=== PATIENT | female | born 1975 | race Caucasian/White ===

== ENCOUNTER → 2016-10-18 | Outpatient (CLI) | payer OTHER ==
[2016-10-18 15:47] LABS: MEAN CORPUSCULAR HEMOGLOBIN 29.5 pg (27.0-33.0); MEAN CORPUSCULAR HGB CONC 33.2 g/dl (32.0-36.5); MEAN CORPUSCULAR VOLUME 88.7 fl (80.0-96.0); RED CELL DISTRIBUTION WIDTH 14.5 % (11.5-14.5); WHITE BLOOD COUNT 11.8 K/mm3 (4.0-10.0)
[2016-10-18 16:16] LABS: ALBUMIN 3.8 GM/DL (3.2-5.2); ALBUMIN/GLOBULIN RATIO 1.03 (1.00-1.93); ALKALINE PHOSPHATASE 80 U/L (45-117); ALT/SGPT 22 U/L (12-78); ANION GAP 9 MEQ/L (8-16); AST/SGOT 17 U/L (15-37); BILIRUBIN,TOTAL 0.3 MG/DL (0.2-1.0); BLOOD UREA NITROGEN 6 MG/DL (7-18); CALCIUM LEVEL 8.7 MG/DL (8.5-10.1); CARBON DIOXIDE LEVEL 25 MEQ/L (21-32); CHLORIDE LEVEL 106 MEQ/L (98-107); CHOLESTEROL LEVEL 222 MG/DL (<200); CREATININE FOR GFR 0.75 MG/DL (0.55-1.02); GLOMERULAR FILTRATION RATE > 60.0 (>58); GLUCOSE, FASTING 74 MG/DL (70-105); POTASSIUM SERUM 4.4 MEQ/L (3.5-5.1); SODIUM LEVEL 140 MEQ/L (136-145); TOTAL PROTEIN 7.5 GM/DL (6.4-8.2); TRIGLYCERIDES LEVEL 209 MG/DL (<150)
--- NOTE | 2016-10-18 18:43 | REP ---
Digital screening mammography with CAD: Comparison mammography: 06/28/2015, 12/03/2012, and 11/03/2009. This patient had a benign ultrasound-guided core biopsy of the left breast nodule in July 2015. The pathology reports states fibrocystic changes. One of the fragments shows features suggestive of fibroadenoma. On review, it also appears that ultrasound guided needle biopsy of this lesion was performed in 2009. Both of these pathologic reports describe a fragments compatible with fibroadenoma. Mammographic findings: There is a well circumscribed oval-shaped 2.6 cm mass in the superior medial quadrant of the left breast adjacent to two needle biopsy marker clips. This has enlarged in the interval since the last mammogram from 06/28/2015 when it measured 2 cm. There is no other change in the breast parenchyma in the interval since prior mammography. No neodensity is seen. There are normal appearing lymph nodes in each axilla. No micro calcific cluster is observed. Impression: BIRADS category II benign bilateral mammography. There is an enlarging mass in the superior and medial left breast at 11 o'clock. This has been biopsied twice in the past with the report compatible with fibroadenoma. No other significant finding. BI-RADS/ACR category 2 mammogram. Benign finding(s). Routine annual screening mammography (for women over age 40). This mammogram was interpreted with the aid of an FDA-approved computer-aided detection system. . The patient states that she has not had a clinical breast exam in over a year. The patient letter being requested is M2. Signed by Lyndon Gil MD 10/19/2016 05:19 P
--- NOTE | 2016-10-18 22:45 | ECGEPIP ---
Stationary ECG Study [facility] Test Date: 2016-10-18 Pat Name: STEPHY PADGETT Department: Room: - Gender: F Warehouse Loader: LINO : 1975 Requested By: Cecille Méndez Order Number: [id number] Reading MD: Aashish Coles Measurements Intervals [place] Rate: 77 P: 52 GA: 163 QRS: 46 QRSD: 89 T: 29 QT: 377 QTc: 427 Interpretive Statements SINUS RHYTHM EARLY REPOLARIZATION MINIMAL/NONSIGNIFICANT Q WAVES NOTED IN THE INFEROLATERAL LEADS COMPARED TO THE LAST 2 TRACINGS IN THE SYSTEM, NO SIGNIFICANT CHANGES Electronically Signed On 10-18-2016 22:45:36 EDT by Aashish Coles
--- NOTE | 2016-10-19 04:19 | REP ---
Clinical: Yearly physical evaluation . Comparison: 01/02/2015 . Technique: PA and lateral. Findings: The mediastinum and cardiac silhouette are normal. The lung martinez are clear and without acute consolidation, effusion, or pneumothorax. The skeletal structures are intact and normal. Impression: 1. No acute cardiopulmonary process. Signed by Stefan Perez MD 10/19/2016 04:10 A
== END ==
LOC: M LAB 14:28
PROVIDERS: ATTEND Family Medicine
DX: Z00.00 Encounter for general adult medical examination without abnormal findings (principal)

== ENCOUNTER 2016-11-10 17:09 | Emergency (ER) | payer OTHER ==
[~2016-11-10] VITALS: Ht 165.1 cm; Wt 94.3 kg
[2016-11-10] MEDS ORDERED: VITA50003 PO (17:26)
[2016-11-10] MEDS ORDERED: PRAV40TA2 PO (17:26)
[2016-11-10] MEDS ORDERED: CAPT125TA PO (17:26)
[2016-11-10] MEDS ORDERED: NS 1,000 ML IV ONE (18:45)
[2016-11-10 19:11] LABS: BASO % 0.3 % (0.0-1.0); EOS # 0.3 K/mm3 (0.0-0.50); LARGE UNSTAINED CELL # 0.1 K/mm3 (0.0-0.4); LYMPH # 2.9 K/mm3 (1.5-4.5); LYMPH % 19.4 % (24.0-44.0); MEAN CORPUSCULAR HEMOGLOBIN 30.1 pg (27.0-33.0); MEAN CORPUSCULAR HGB CONC 34.3 g/dl (32.0-36.5); MEAN CORPUSCULAR VOLUME 87.7 fl (80.0-96.0); MONO # 0.5 K/mm3 (0.0-0.8); MONO % 3.3 % (0.0-5.0); NEUTROPHILS # 10.4 K/mm3 (1.8-7.7); PLATELET COUNT, AUTOMATED 224 k/mm3 (150-450); RED CELL DISTRIBUTION WIDTH 14.4 % (11.5-14.5); WHITE BLOOD COUNT 14.1 K/mm3 (4.0-10.0)
[2016-11-10] MEDS ORDERED: KETOROLAC 30 MG/ML VIAL (J1885) IV ONE (19:30)
[2016-11-10 19:41] LABS: ALBUMIN 3.9 GM/DL (3.2-5.2); ALBUMIN/GLOBULIN RATIO 1.03 (1.00-1.93); ALKALINE PHOSPHATASE 76 U/L (45-117); ALT/SGPT 23 U/L (12-78); AMYLASE 30 U/L (25-115); ANION GAP 6 MEQ/L (8-16); AST/SGOT 13 U/L (15-37); BILIRUBIN,DIRECT < 0.1 MG/DL (0.0-0.2); BILIRUBIN,TOTAL 0.2 MG/DL (0.2-1.0); BLOOD UREA NITROGEN 5 MG/DL (7-18); CALCIUM LEVEL 8.7 MG/DL (8.5-10.1); CARBON DIOXIDE LEVEL 28 MEQ/L (21-32); CHLORIDE LEVEL 104 MEQ/L (98-107); CREATININE FOR GFR 0.72 MG/DL (0.55-1.02); GLOMERULAR FILTRATION RATE > 60.0 (>58); GLUCOSE, FASTING 87 MG/DL (70-105); POTASSIUM SERUM 3.8 MEQ/L (3.5-5.1); SODIUM LEVEL 138 MEQ/L (136-145); TOTAL PROTEIN 7.7 GM/DL (6.4-8.2)
[2016-11-10] MEDS ORDERED: ISOVUE-370 76% 100ML VIAL (Q9967) As Ordered ONE (21:15)
--- NOTE | 2016-11-10 21:40 | REPUSA ---
CT of the abdomen and pelvis with contrast Clinical statement: Pain. Technique: Multiple axial CT images were obtained from the base of the lungs through the floor of the pelvis utilizing 5 mm axial slices after administration of oral and nonionic intravenous contrast. C oronal and sagittal reconstructions were also obtained. No comparison is available. Findings: Chest: The visualized lung bases are clear. Abdomen: The liver, spleen, pancreas, kidneys, and adrenal glands are unremarkable. The aorta is with in normal limits. There is no evidence of abdominal lymphadenopathy or ascites. There is a very small umbilical hernia containing only omental fat. Pelvis: The bowel is unremarkable, with no obstructive or inflammatory changes. The appendix is kevon l. The urinary bladder is within normal limits. The other pelvic structures appear grossly intact. Th ere is no evidence of pelvic lymphadenopathy or ascites. Bones: There are no suspicious osseous abnormalities seen. Impression: Unremarkable CT examination of the abdomen and pelvis. No acute abnormality to explain th e patient's pain. Small umbilical hernia.
[2016-11-10] MEDS ORDERED: ZOFR4TAB3 PO (22:11)
[2016-11-10] MEDS ORDERED: IBUP600T26 PO (22:12)
[2016-11-10 22:19] VITALS: BP 114/55
--- NOTE | 2016-11-10 22:58 | REP ---
ACUTE ABDOMINAL SERIES: 11/10/2016. Comparison chest x-ray 10/18/2016. Clinical history: Abdominal pain. PA chest: Lungs are well inflated. There is some minor basilar fibrotic change, but no pleural effusion, acute infiltrate, atelectasis or mass. The heart, mediastinal and hilar contours are normal. Bony thorax shows no focal lesion. There is no widening of the mediastinum. No free air under the diaphragm. Flat upright abdomen: Right upper quadrant clips from prior cholecystectomy. Gas pattern is nonspecific with some stool in the right colon. Scattered gas in the hepatic flexure and a paucity of gas in small bowel loops and colon on the left side of the abdomen. Small amounts of gas and small bowel loops in the right abdomen. However, no sign of obstruction and no air-fluid levels, mass or free air. Bones grossly intact. Impression: 1. Nonspecific gas pattern without obstruction, mass or free air. Mostly fluid-filled loops may reflect some gastroenteritis or ileus. 2. PA chest with some minor chronic basilar markings. Stable. No acute findings in the chest. Signed by Bryson Saleh MD 11/11/2016 08:12 P
== END 2016-11-10 22:35 | disposition home or self-care (01) ==
LOC: M ED 18:51
DX: K52.9 Noninfective gastroenteritis and colitis, unspecified (principal); I10 Essential (primary) hypertension; E78.00 Pure hypercholesterolemia, unspecified; Z88.1 Allergy status to other antibiotic agents; F17.210 Nicotine dependence, cigarettes, uncomplicated

== ENCOUNTER → 2016-11-20 | Outpatient (REF) | payer OTHER ==
[~2016-11-20] MED LIST: CAPT125TA PO; IBUP600T26 PO; PRAV40TA2 PO; VITA50003 PO; ZOFR4TAB3 PO
[2016-11-20 18:05] LABS: FREE T4 0.95 NG/DL (0.76-1.46); HCG, SERUM QUANTITATIVE < 1.0 MIU/ML
[2016-11-20 18:29] LABS: FOLLICLE STIMULATING HORMONE 3.5 mIU/mL; LUTEINIZING HORMONE 6.8 mIU/mL
[2016-11-20 19:08] LABS: MEAN CORPUSCULAR HEMOGLOBIN 28.2 pg (27.0-33.0); MEAN CORPUSCULAR HGB CONC 32.1 g/dl (32.0-36.5); MEAN CORPUSCULAR VOLUME 87.9 fl (80.0-96.0); RED CELL DISTRIBUTION WIDTH 14.3 % (11.5-14.5); WHITE BLOOD COUNT 11.4 K/mm3 (4.0-10.0)
== END ==
LOC: M LAB REF 16:29
PROVIDERS: ATTEND Advanced Practice Midwife
DX: N92.1 Excessive and frequent menstruation with irregular cycle (principal)

== ENCOUNTER → 2017-02-07 | Outpatient (CLI) | payer MEDICAID, OTHER ==
[~2017-02-07] VITALS: Ht 165.1 cm; Wt 91.6 kg
[~2017-02-07] MED LIST changes: +IBUP-1022 PO; -IBUP600T26 PO; +LIDOCAINE 2% INJ 100 MG/5 ML SDV (FOR ANES.) As Ordered ONE; +NS 1,000 ML IV SCH; +PERCOCET PO; +PROPOFOL 200 MG/20 ML VIAL As Ordered ONE; +VITA1CAP40 PO; -VITA50003 PO
--- NOTE | 2017-02-07 11:58 | ROOR ---
Patient Name: Jenny Crawford Procedure Date: 02/07/2017 11:41 AM Date of : 1975 Age: 41 Room: [facility] Gender: Female Note Status: Finalized Procedure: Total Colonoscopy to Cecum Indications: Rectal bleeding Providers: Lb Dempsey MD Referring MD: KARLI LLOYD MD Requesting Provider: Medicines: Monitored Anesthesia Care Complications: No immediate complications. Procedure: Pre-Anesthesia Assessment: - The heart rate, respiratory rate, oxygen saturations, blood pressure, adequacy of pulmonary ventilation, and response to care were monitored throughout the procedure. The Colonoscope was introduced through the anus and advanced to the cecum, identified by appendiceal orifice and ileocecal valve. The colonoscopy was performed without difficulty. The patient tolerated the procedure well. The quality of the bowel preparation was good. Findings: The perianal and digital rectal examinations were normal. Non-bleeding internal hemorrhoids were found during retroflexion. The hemorrhoids were small and Grade I (internal hemorrhoids that do not prolapse). No other significant abnormalities were identified in a careful examination of the remainder of the colon. The exam was otherwise without abnormality on direct and retroflexion views. Impression: - Non-bleeding internal hemorrhoids. - The examination was otherwise normal on direct and retroflexion views. - No specimens collected. - The exam was otherwise normal to the cecum. Recommendation: - Patient has a contact number available for emergencies. The signs and symptoms of potential delayed complications were discussed with the patient. Return to normal activities tomorrow. Written discharge instructions were provided to the patient. - High fiber diet. - Discharge patient to home. - Continue present medications. - Repeat colonoscopy in 10 years for screening purposes. - Return to referring physician. - The findings and recommendations were discussed with the patient's family. Lb Dempsey MD Lb Dempsey MD 02/07/2017 11:58:08 AM This report has been signed electronically. Number of Addenda: 0 Note Initiated On: 02/07/2017 11:41 AM Estimated Blood Loss: Estimated blood loss: none.
[2017-02-07 12:23] VITALS: BP 117/72
== END | disposition home or self-care (01) ==
LOC: M OPP 09:54
PROVIDERS: ATTEND Internal Medicine Gastroenterology
DX: K62.5 Hemorrhage of anus and rectum (principal); K64.0 First degree hemorrhoids; I10 Essential (primary) hypertension; E78.5 Hyperlipidemia, unspecified; R19.4 Change in bowel habit; F17.210 Nicotine dependence, cigarettes, uncomplicated; Z88.1 Allergy status to other antibiotic agents; Z91.018 Allergy to other foods; Z91.040 Latex allergy status; Z79.899 Other long term (current) drug therapy; Z80.3 Family history of malignant neoplasm of breast; Z80.41 Family history of malignant neoplasm of ovary

== ENCOUNTER 2017-02-14 09:29 | Day surgery (SDC) | payer MEDICAID, OTHER ==
[~2017-02-14] VITALS: Ht 165.1 cm; Wt 89.4 kg
[~2017-02-14 09:29] MED LIST changes: -LIDOCAINE 2% INJ 100 MG/5 ML SDV (FOR ANES.) As Ordered ONE; -NS 1,000 ML IV SCH; -PERCOCET PO; -PROPOFOL 200 MG/20 ML VIAL As Ordered ONE
[2017-02-14 09:59] LABS: MEAN CORPUSCULAR HEMOGLOBIN 29.3 pg (27.0-33.0); MEAN CORPUSCULAR HGB CONC 33.6 g/dl (32.0-36.5); MEAN CORPUSCULAR VOLUME 87.1 fl (80.0-96.0); WHITE BLOOD COUNT 10.2 K/mm3 (4.0-10.0)
[2017-02-14] MEDS ORDERED: LR 1,000 ML IV ONE (10:00)
[2017-02-14] MEDS ORDERED: ACETAMINOPHEN 650 MG SUPP PR ONE (10:00)
[2017-02-14 10:23] LABS: CONTROL LINE HCG INT CTR LINE PRESENT
[2017-02-14 10:27] LABS: ANION GAP 4 MEQ/L (8-16); BLOOD UREA NITROGEN 6 MG/DL (7-18); CALCIUM LEVEL 8.8 MG/DL (8.5-10.1); CARBON DIOXIDE LEVEL 30 MEQ/L (21-32); CHLORIDE LEVEL 107 MEQ/L (98-107); CREATININE FOR GFR 0.76 MG/DL (0.55-1.02); GLOMERULAR FILTRATION RATE > 60.0 (>58); GLUCOSE, FASTING 87 MG/DL (70-105); POTASSIUM SERUM 3.9 MEQ/L (3.5-5.1); SODIUM LEVEL 141 MEQ/L (136-145)
[2017-02-14] MEDS ORDERED: MIDAZOLAM INJ 2 MG/2 ML VIAL (J2250) As Ordered ONE (10:41)
[2017-02-14] MEDS ORDERED: fentaNYL 100 MCG/2 ML INJECTION (J3010) As Ordered ONE (10:41)
[2017-02-14] MEDS ORDERED: ACETAMINOPHEN 650 MG SUPP As Ordered ONE (11:45)
[2017-02-14] MEDS ORDERED: BUPIVACAINE/EPIN 0.25% 30 ML VIAL As Ordered ONE (11:45)
[2017-02-14] MEDS ORDERED: FLUORESCEIN 10% (100MG/ML) 5 ML VIAL As Ordered ONE (11:45)
[2017-02-14] MEDS ORDERED: HYDROmorphone HCL 2 MG/ML 1ML VIAL (J1170) As Ordered ONE ×2 (12:35→13:11)
[2017-02-14] MEDS ORDERED: NEOSTIGMINE 1MG/ML 5 ML SYRINGE (J2710) As Ordered ONE (12:56)
[2017-02-14] MEDS ORDERED: ROCURONIUM BROMIDE 50 MG/5 ML VIAL/SYRINGE As Ordered ONE (12:56)
[2017-02-14] MEDS ORDERED: PROPOFOL 200 MG/20 ML VIAL As Ordered ONE (12:56)
[2017-02-14] MEDS ORDERED: GLYCOPYRROLATE INJ 0.2 MG/ML 2 ML VIAL As Ordered ONE (12:56)
[2017-02-14] MEDS ORDERED: dexameTHASONE 4 MG/ML 1ML VIAL (J1100) As Ordered ONE (12:56)
[2017-02-14] MEDS ORDERED: LIDOCAINE 2% INJ 100 MG/5 ML SDV (FOR ANES.) As Ordered ONE (12:56)
[2017-02-14] MEDS ORDERED: ONDANSETRON 4MG/2ML VIAL (J2405) As Ordered ONE (12:57)
[2017-02-14] MEDS ORDERED: KETOROLAC 60 MG/2 ML VIAL (J1885) As Ordered ONE (12:57)
[2017-02-14] MEDS ORDERED: PERCOCET 5MG/325MG TAB PO PRN (14:45)
[2017-02-14] MEDS ORDERED: LR 1,000 ML IV SCH ×2 (14:45→15:00)
[2017-02-14] MEDS ORDERED: ONDANSETRON 4MG/2ML VIAL (J2405) IV PRN ×2 (14:45)
[2017-02-14] MEDS ORDERED: NORCO, ANEXSIA 5/325MG TABLET (HYDROcodone/ACETAMINOPHEN) PO PRN (14:45)
[2017-02-14] MEDS ORDERED: fentaNYL 100 MCG/2 ML INJECTION (J3010) IV PRN (14:45)
[2017-02-14 15:30] VITALS: BP 107/63
[2017-02-14] MEDS: IBUPROFEN 800 MG TAB PO SCH ×3 (15:57→23:06)
[2017-02-14] MEDS: SIMETHICONE 80 MG CHEW TAB PO SCH ×3 (15:59→23:06)
[2017-02-14 16:00] VITALS: BP 102/57
[2017-02-14 16:30] VITALS: BP 99/55
[2017-02-14 17:30] VITALS: BP 103/50
[2017-02-14 18:30] VITALS: BP 124/57
[2017-02-14 20:00] VITALS: BP 108/54
[2017-02-15] VITALS: BP 136/62
[2017-02-15] MEDS ORDERED: PERCOCET PO (03:20)
[2017-02-15 04:00] VITALS: BP 99/55
[2017-02-15] MEDS: IBUPROFEN 800 MG TAB PO SCH (06:46)
[2017-02-15] MEDS: SIMETHICONE 80 MG CHEW TAB PO SCH (06:46)
[2017-02-15 08:00] VITALS: BP 117/59
--- NOTE | 2017-02-15 18:10 | RO ---
DATE OF PROCEDURE: 02/14/2017 Malathi is a 41-year-old female with extensive history of abnormal uterine bleeding, dysmenorrhea and an enlarged uterus. After counseling in the office a decision was made for robotic-assisted laparoscopic hysterectomy and removal of both tubes. PREOPERATIVE DIAGNOSES: 1. Abnormal uterine bleeding. 2. Dysmenorrhea. 3. Enlarged uterus. POSTOPERATIVE DIAGNOSES: 1. Abnormal uterine bleeding. 2. Dysmenorrhea. 3. Enlarged uterus. OPERATIVE PROCEDURE: 1. Robotic-assisted laparoscopic hysterectomy. 2. Bilateral salpingectomies 3. Cystoscopy. SURGEON: Dev Luu MD RN TRANSFER: Bailey Vann ANESTHESIA: General. COMPLICATIONS: None. ESTIMATED BLOOD LOSS: Less than 100 mL. SPECIMENS SENT TO THE LAB: The uterus, cervix and bilateral fallopian tubes. DESCRIPTION OF PROCEDURE: After meeting with the patient in preoperative area and reaffirmed informed consent, the patient was taken to the operating room where general anesthetic was found to be adequate. She was then draped and prepped in the usual sterile fashion in dorsal lithotomy position. At this point, a Lira catheter was placed in the bladder for drainage. We then placed a HUMI II uterine manipulator. Attention was then turned to the abdomen where a 10 mm infraumbilical incision was made. Using the Veress needle, the abdomen was insufflated with CO2 gas to approximately 3.5 liters. Then, under direct visualization the trocar and the scope was inserted, then two 8 mm left lateral ports were placed one for trocar arm two and the assist port on the right side. An 8 mm lateral port was placed for placement of robotic arm one. After placement of these trocars under direct visualization, the robot was brought to the patient's right side and docked in a 45 degrees angle. A vessel sealer along with a grasper was then placed in the robotic arms. I then unscrubbed and went to the surgeon console began the surgery. The fallopian tube was identified and the mesosalpinx was grabbed with a vessel sealer, sealed and cut. This was taken down all way down to the utero-ovarian ligament. The utero-ovarian ligament was cauterized and cut in a similar fashion. The round ligament was also identified and this was cauterized and cut in a similar fashion down to the uterine artery. The anterior leaflet of the broad ligament was then dissected off to create a bladder flap. The bladder was pushed out of the operative field. The opposite side was done in a similar fashion. At this point the uterine arteries were skeletonized and the uterine arteries were then coagulated and cut using the vessel sealer. Both side was done in a similar fashion. At this point the bipolar grasper was removed, an EndoShear was placed and an anterior and posterior colpotomy was then performed. The uterus as well as the bilateral fallopian tubes were removed through the vagina and left there for pneumoperitoneum. At this point, the bipolar grasper was removed. Needle new car driver was inserted and #2-0 V-Loc suture was then used to close the vaginal cuff in a running fashion. The peritoneum over the vaginal cuff was also closed. After closure of the vaginal cuff, 1 mL of Furacin was given by the end of the anesthesiologist for cystoscopy. I then resrubbed, retrograde filled the bladder to approximately 250 mL of normal saline. The catheter was removed, cystoscope inserted and a cystoscopy was performed. Bilateral urethral jets were noted. No evidence of any bladder injury noted. After showing that there was no injury, the cystoscope was removed. A Lira catheter was replaced back in the bladder. The robot was undocked and the laparoscopic ports were then closed using #0 Vicryl in the fascia and #3-0 Vicryl in a subcuticular fashion on the skin. Dermabond placed. 0.25% Marcaine was used for postoperative pain. The patient tolerated procedure well. She was then transferred to recovery room in stable condition.
== END 2017-02-15 08:55 | disposition home or self-care (01) ==
LOC: M SDC 09:29 → M PED 15:25 → M SDC 02-15 08:55
PROVIDERS: ATTEND Obstetrics & Gynecology
DX: N93.9 Abnormal uterine and vaginal bleeding, unspecified (principal); N94.6 Dysmenorrhea, unspecified; N85.2 Hypertrophy of uterus; I10 Essential (primary) hypertension; E78.00 Pure hypercholesterolemia, unspecified; F17.210 Nicotine dependence, cigarettes, uncomplicated; Z88.1 Allergy status to other antibiotic agents; Z91.018 Allergy to other foods; Z91.040 Latex allergy status; Z79.899 Other long term (current) drug therapy; Z98.51 Tubal ligation status
CPT/HCPCS: 36415; 58571; 80048; 84703; 85027; 86850; 86900; 86901; 88307; J0690; J1100; J1170; J1885; J2250; J2405; J2710; J3010

== ENCOUNTER 2017-07-22 20:38 | Emergency (ER) | payer OTHER ==
[~2017-07-22] VITALS: Ht 165.1 cm; Wt 85.5 kg
[~2017-07-22 20:38] MED LIST changes: +PERCOCET PO
[2017-07-22 20:41] VITALS: BP 150/68
[2017-07-22] MEDS ORDERED: ADACEL/BOOSTRIX VACCINE (DIPHTH/PERTUSS/ACELL/TETANUS)0.5ML SYR (90715) IM ONE (22:00)
[2017-07-22] MEDS ORDERED: LIDOCAINE 1% MDV 20ML VIAL IM ONE (22:00)
== END 2017-07-22 22:23 | disposition home or self-care (01) ==
LOC: M ED 20:38
DX: S61.411A Laceration without foreign body of right hand, initial encounter (principal); W25.XXXA Contact with sharp glass, initial encounter; Y92.010 Kitchen of single-family (private) house as the place of occurrence of the external cause; Y93.89 Activity, other specified; Y99.8 Other external cause status; I10 Essential (primary) hypertension; Z88.8 Allergy status to other drugs, medicaments and biological substances; Z91.040 Latex allergy status; Z91.018 Allergy to other foods; F17.210 Nicotine dependence, cigarettes, uncomplicated

== ENCOUNTER → 2017-10-22 | Outpatient (CLI) | payer OTHER ==
[2017-10-22 11:09] LABS: HEMATOCRIT 39.7 % (36.0-47.0); HEMOGLOBIN 13.1 g/dl (12.0-16.0); MEAN CORPUSCULAR HEMOGLOBIN 28.5 pg (27.0-33.0); MEAN CORPUSCULAR VOLUME 86.5 fl (80.0-96.0); PLATELET COUNT, AUTOMATED 250 10^3/uL (150-450); RED BLOOD COUNT 4.59 10^6/uL (4.00-5.40); RED CELL DISTRIBUTION WIDTH 15.3 % (11.5-14.5); WHITE BLOOD COUNT 10.6 10^3/uL (4.0-10.0)
[2017-10-22 11:27] LABS: ESTIMATED AVERAGE GLUCOSE 123 MG/DL (60-110); HEMOGLOBIN A1c 5.9 %
[2017-10-22 11:37] LABS: ALBUMIN 3.5 GM/DL (3.2-5.2); ALBUMIN/GLOBULIN RATIO 0.97 (1.00-1.93); ALKALINE PHOSPHATASE 82 U/L (45-117); ALT/SGPT 22 U/L (12-78); ANION GAP 7 MEQ/L (8-16); AST/SGOT 16 U/L (7-37); BILIRUBIN,TOTAL 0.4 MG/DL (0.2-1.0); BLOOD UREA NITROGEN 7 MG/DL (7-18); CALCIUM LEVEL 8.4 MG/DL (8.5-10.1); CARBON DIOXIDE LEVEL 28 MEQ/L (21-32); CHLORIDE LEVEL 106 MEQ/L (98-107); CHOLESTEROL LEVEL 202 MG/DL (<200); CHOLESTEROL RISK RATIO 7.769 (<5); CREATININE FOR GFR 0.84 MG/DL (0.55-1.30); GLOMERULAR FILTRATION RATE > 60.0 (>58); GLUCOSE, FASTING 82 MG/DL (70-100); HDL CHOLESTEROL 26 MG/DL (>40); LDL CHOLESTEROL 123.6 MG/DL (<100); NON-HDL-C 176 MG/DL; POTASSIUM SERUM 4.3 MEQ/L (3.5-5.1); SODIUM LEVEL 141 MEQ/L (136-145); TOTAL PROTEIN 7.1 GM/DL (6.4-8.2); TRIGLYCERIDES LEVEL 262 MG/DL (<150)
[2017-10-22 11:42] LABS: TOTAL 25(OH) VITAMIN D 26.6 NG/ML (30.0-100.0)
== END ==
LOC: M LAB 10:52
DX: D64.9 Anemia, unspecified (principal); R53.83 Other fatigue; E03.9 Hypothyroidism, unspecified
CPT/HCPCS: 84443

== ENCOUNTER 2018-03-23 19:28 | Emergency (ER) | payer OTHER ==
[2018-03-23] MEDS: ACETAMINOPH W/CODEINE #3 TAB UD PO (21:57)
== END 2018-03-23 22:00 | disposition home or self-care (01) ==
LOC: M ED 19:28
DX: M54.5 Low back pain (principal); M79.604 Pain in right leg; I10 Essential (primary) hypertension; E78.5 Hyperlipidemia, unspecified; M54.32 Sciatica, left side; Z79.899 Other long term (current) drug therapy; Z79.82 Long term (current) use of aspirin; Z88.1 Allergy status to other antibiotic agents; Z91.018 Allergy to other foods; Z91.040 Latex allergy status; F17.210 Nicotine dependence, cigarettes, uncomplicated
CPT/HCPCS: 99283

== ENCOUNTER 2018-04-15 13:35 | Emergency (ER) | payer OTHER ==
[2018-04-15] MEDS: NS 1,000 ML IV (14:29)
[2018-04-15 14:31] LABS: BASO % 0.3 % (0.0-1.0); EOS # 0.2 10^3/uL (0.0-0.50); EOS % 1.5 % (0.0-3.0); HEMATOCRIT 41.3 % (36.0-47.0); HEMOGLOBIN 13.9 g/dl (12.0-15.5); IMMATURE GRANULOCYTE % 0.9 % (0-3.0); LYMPH # 3.3 10^3/uL (1.5-4.5); LYMPH % 28.3 % (24.0-44.0); MEAN CORPUSCULAR HGB CONC 33.7 g/dl (32.0-36.5); MEAN CORPUSCULAR VOLUME 86.2 fl (80.0-96.0); MONO # 0.7 10^3/uL (0.0-0.8); MONO % 5.7 % (0.0-5.0); NEUTROPHILS # 7.4 10^3/uL (1.8-7.7); NEUTROPHILS % 63.3 % (36.0-66.0); PLATELET COUNT, AUTOMATED 242 10^3/uL (150-450); RED BLOOD COUNT 4.79 10^6/uL (4.00-5.40); RED CELL DISTRIBUTION WIDTH 14.1 % (11.5-14.5); WHITE BLOOD COUNT 11.6 10^3/uL (4.0-10.0)
[2018-04-15 14:41] LABS: INR 0.92; PROTHROMBIN TIME 12.4 SECONDS (12.1-14.4)
[2018-04-15 14:42] LABS: PARTIAL THROMBOPLASTIN TIME 28.1 SECONDS (25.4-37.6)
[2018-04-15 15:31] LABS: ALBUMIN 3.9 GM/DL (3.2-5.2); ALKALINE PHOSPHATASE 71 U/L (45-117); ALT/SGPT 30 U/L (12-78); ANION GAP 7 MEQ/L (8-16); AST/SGOT 20 U/L (7-37); BILIRUBIN,DIRECT < 0.1 MG/DL (0.0-0.2); BILIRUBIN,TOTAL 0.2 MG/DL (0.2-1.0); BLOOD UREA NITROGEN 10 MG/DL (7-18); C REACTIVE PROTEIN QUANTITATIV 1.23 MG/DL (0.00-0.30); CALCIUM LEVEL 9.2 MG/DL (8.5-10.1); CARBON DIOXIDE LEVEL 26 MEQ/L (21-32); CHLORIDE LEVEL 102 MEQ/L (98-107); CPK CREATINE PHOSPHOKINASE 85 U/L (26-192); CREATININE FOR GFR 0.87 MG/DL (0.55-1.30); GLOMERULAR FILTRATION RATE > 60.0 (>58); MB/CK RELATIVE INDEX 1.29 (< OR =4); POTASSIUM SERUM 3.6 MEQ/L (3.5-5.1); SODIUM LEVEL 135 MEQ/L (136-145); TOTAL PROTEIN 8.2 GM/DL (6.4-8.2); TROPONIN I < 0.02 NG/ML (< 0.10)
[2018-04-15] MEDS ORDERED: ISOVUE-370 76% 100ML VIAL (Q9967) As Ordered (16:03)
[2018-04-15 20:23] LABS: GLUCOSE, FASTING 89 MG/DL (70-100)
[2018-04-15 20:39] LABS: ALBUMIN/GLOBULIN RATIO 0.91 (1.00-1.93)
[2018-04-15] MEDS: NORCO, ANEXSIA 5/325MG TABLET (HYDROcodone/ACETAMINOPHEN) PO (22:00)
[2018-04-15] MEDS: ASPIRIN 81 MG CHEW TABLET PO (23:30)
== END 2018-04-15 23:42 | disposition home or self-care (01) ==
LOC: M ED 13:35
DX: R42 Dizziness and giddiness (principal); I63.50 Cerebral infarction due to unspecified occlusion or stenosis of unspecified cerebral artery; I10 Essential (primary) hypertension; E78.5 Hyperlipidemia, unspecified; M54.30 Sciatica, unspecified side; E55.9 Vitamin D deficiency, unspecified; Z86.69 Personal history of other diseases of the nervous system and sense organs; F17.200 Nicotine dependence, unspecified, uncomplicated; Z91.018 Allergy to other foods; Z88.1 Allergy status to other antibiotic agents; Z91.040 Latex allergy status; Z79.899 Other long term (current) drug therapy
CPT/HCPCS: Q9967

== ENCOUNTER → 2018-04-23 | Outpatient (CLI) | payer OTHER | LOC: M RAD 12:57 | DX: M54.30 Sciatica, unspecified side (principal) | CPT/HCPCS: 72110 ==

== ENCOUNTER 2018-10-08 13:00 | Day surgery (SDC) | payer OTHER ==
[~2018-10-08] VITALS: Ht 165.1 cm; Wt 97.9 kg
[~2018-10-08 13:00] MED LIST changes: +ACET30TAB PO; +ASPI81CH32 PO; +BENA25TA10 PO; +CYCL10TA PO; +IBUP-1114 PO; +LOSA50TA88 PO; +LR 1,000 ML IV ONE; +MECL1CHW2 PO; +MELO7.5T7 PO; +MUCI600T37 PO; +TRIAMT/HCTZ; +TUSS1CAP5 PO; -VITA1CAP40 PO; +VITA50005 PO; +ZOFR4TAB14 PO; +ZOFR4TAB16 PO; -ZOFR4TAB3 PO
[2018-10-08] MEDS ORDERED: PROPOFOL 200 MG/20 ML VIAL As Ordered ONE (13:04)
[2018-10-08] MEDS ORDERED: LIDOCAINE 2% INJ 100 MG/5 ML SDV (FOR ANES.) As Ordered ONE (13:04)
[2018-10-08] MEDS ORDERED: dexameTHASONE 4 MG/ML 1ML VIAL (J1100) As Ordered ONE (13:04)
[2018-10-08] MEDS ORDERED: ONDANSETRON 4MG/2ML VIAL (J2405) As Ordered ONE (13:04)
[2018-10-08] MEDS ORDERED: MIDAZOLAM INJ 2 MG/2 ML VIAL (J2250) As Ordered ONE (13:09)
[2018-10-08] MEDS ORDERED: fentaNYL 100 MCG/2 ML INJECTION (J3010) As Ordered ONE (13:09)
[2018-10-08] MEDS ORDERED: CETACAINE SPRAY 5GM As Ordered ONE (14:09)
[2018-10-08 15:25] VITALS: BP 118/65
--- NOTE | 2018-10-08 15:28 | T-ECHO ---
DATE OF PROCEDURE: 10/08/2018 REFERRING PHYSICIAN: Dr. Buzz Gillespie INDICATION FOR NANCY: Cryptogenic stroke. PREPROCEDURE DIAGNOSIS: Cryptogenic stroke. POSTPROCEDURE DIAGNOSIS: Cryptogenic stroke. PROCEDURE PERFORMED: Transesophageal echocardiogram with bubble study. PROCEDURE PERFORMED BY: Temo Milton MD CIVIL CELEBRANT: None. ANESTHESIA/IV SEDATION: IV conscious sedation, monitored anesthetic care was administered by WOVEN WOOD SHADE ASSEMBLER. COMPLICATIONS: None. FINDINGS: Normal transesophageal echocardiogram. Saline bubble study negative for detection of intracardiac shunting. PROCEDURE DESCRIPTION: Patient received Cetacaine spray to the back of the oropharynx. She received IV conscious sedation as administered by the WOVEN WOOD SHADE ASSEMBLER. Esophageal intubation was accomplished without difficulty using a Tonie 3-dimensional transesophageal echocardiogram probe. Rhythm was sinus. The left ventricle appeared to be normal in size and systolic function. Right ventricle appeared normal in size and systolic function. Atrial septum appeared to be normal in size. No mass or thrombi or spontaneous echocontrast was seen within the atria or appendages. Atrial septum was intact anatomically and by color flow Doppler. The patient was too sedated to be able to perform a Valsalva maneuver. A saline bubble study with a small amount of Propofol was syringed back and forth between two 10 mL syringes and a three-way stopcock. Bubbles/saline/propofol were then injected through a peripheral IV. This gave a good bubble contrast opacification of the right atrium. No bubbles were seen crossing into the left atrium or left ventricle. Pulmonary vein flow in the left upper pulmonary vein was normal. No pericardial effusion. Aortic valve was 3-cusp. Very mild mitral regurgitation was present and within normal limits. Tricuspid, aortic and pulmonic valves were all normal. Distal aortic arch and descending thoracic aorta appeared normal. CONCLUSIONS: 1. Normal transesophageal echocardiogram. Left ventricular ejection fraction 65% by visual estimate. 2. Negative for detection of atrioseptal aneurysm, atrioseptal defect, or patent foramen ovale. 3. Negative bubble study for intracardiac shunting.
== END 2018-10-08 15:39 | disposition home or self-care (01) ==
LOC: M SDC 13:00
PROVIDERS: ATTEND Internal Medicine Cardiovascular Disease
DX: R55 Syncope and collapse (principal); R00.2 Palpitations; I10 Essential (primary) hypertension; E78.2 Mixed hyperlipidemia; E66.09 Other obesity due to excess calories; E55.9 Vitamin D deficiency, unspecified; M12.9 Arthropathy, unspecified; F17.210 Nicotine dependence, cigarettes, uncomplicated; Z88.1 Allergy status to other antibiotic agents; Z91.048 Other nonmedicinal substance allergy status; Z91.040 Latex allergy status; Z79.899 Other long term (current) drug therapy; Z79.82 Long term (current) use of aspirin; Z86.69 Personal history of other diseases of the nervous system and sense organs; Z86.73 Personal history of transient ischemic attack (TIA), and cerebral infarction without residual deficits; Z90.710 Acquired absence of both cervix and uterus; Z98.51 Tubal ligation status; Z87.81 Personal history of (healed) traumatic fracture
CPT/HCPCS: 93312; 93320; 93325; J2250; J3010

== ENCOUNTER 2019-01-02 07:13 | Day surgery (SDC) | payer OTHER ==
[~2019-01-02] VITALS: Ht 165.1 cm; Wt 97.1 kg
[~2019-01-02 07:13] MED LIST changes: +ACET-716 PO; -ACET30TAB PO; -ASPI81CH32 PO; +ASPI81CH33 PO; +BENA25CA4 PO; +MECL1CHW PO; -MECL1CHW2 PO; +MELO15TA28 PO
[2019-01-02] MEDS ORDERED: PROPOFOL 200 MG/20 ML VIAL As Ordered ONE (07:58)
[2019-01-02] MEDS ORDERED: LIDOCAINE 2% INJ 100 MG/5 ML SDV (FOR ANES.) As Ordered ONE (07:58)
[2019-01-02] MEDS ORDERED: MIDAZOLAM INJ 2 MG/2 ML VIAL (J2250) As Ordered ONE (07:59)
[2019-01-02] MEDS ORDERED: fentaNYL 100 MCG/2 ML INJECTION (J3010) As Ordered ONE (07:59)
[2019-01-02] MEDS ORDERED: ceFAZolin 2 GM/D5W 50 ML IV BAG (J0690 PER 500MG) As Ordered ONE (08:02)
[2019-01-02] MEDS ORDERED: LIDOCAINE 1% SDV INJ 30 ML VIAL As Ordered ONE (08:13)
[2019-01-02] MEDS ORDERED: dexameTHASONE 4 MG/ML 1ML VIAL (J1100) As Ordered ONE (08:51)
[2019-01-02] MEDS ORDERED: ONDANSETRON 4MG/2ML VIAL (J2405) As Ordered ONE (08:51)
[2019-01-02] MEDS ORDERED: KETOROLAC 60 MG/2 ML VIAL (J1885) As Ordered ONE (08:51)
--- NOTE | 2019-01-02 09:40 | RO ---
DATE OF PROCEDURE: 01/02/2019 PREPROCEDURE DIAGNOSES: 1. Cardiogenic stroke. 2. Unexplained syncope. POSTPROCEDURE DIAGNOSES: 1. Cardiogenic stroke. 2. Unexplained syncope. FINDINGS: 1. Cardiogenic stroke. 2. Unexplained syncope. PROCEDURE PERFORMED: Implantation of a [employer]onic LINQ implantable loop recorder. SURGEON: Temo Milton MD SCOWMAN: None. ANESTHESIA: Lidocaine 1% local/monitored anesthetic care. REPLACEMENTS: No blood products replaced. DRAINS: None. COMPLICATIONS: None. DESCRIPTION OF PROCEDURE: The patient was prepped and draped over the sternum and left anterior chest. Lidocaine 1% was used for local anesthetic. An incision approximately 1 cm in length was made with a #15 blade through the skin at approximately the left fourth interspace about an inch lateral to the left parasternal border. The guide insertion tool was placed into the incision and advanced parallel to the ribcage in the subcutaneous tissue in a caudal-left lateral direction. The insertion tool was rotated 80 degrees. The plunger was placed into the insertion tool and used to advance the implantable loop recorder into the subcutaneous tissue. The plunger was then removed, and then the insertion tool was removed leaving the loop recorder in place. The initial R wave amplitude measured 0.71 mV. A single 2-0 Vicryl suture was then used to approximate the deep layer. I then used a 4-0 Biosyn suture to approximate the skin using it subcutaneously with the stitch protruding from the incision on both sides about 0.5 cm from the incision. The suture was used only temporarily to approximate the incision. Two layers of Dermabond was applied. The Biosyn suture was then pulled through the incision and removed entirely. The patient tolerated the procedure well without any immediate complications. The implantable loop recorder implanted was a [employer] Reveal LINQ model LNQ11 with serial number [id number].
[2019-01-02 09:52] VITALS: BP 101/68
== END 2019-01-02 09:59 | disposition home or self-care (01) ==
LOC: M SDC 07:13
PROVIDERS: ATTEND Internal Medicine Cardiovascular Disease
DX: I63.9 Cerebral infarction, unspecified (principal); R55 Syncope and collapse; E78.5 Hyperlipidemia, unspecified; G43.909 Migraine, unspecified, not intractable, without status migrainosus; Z86.73 Personal history of transient ischemic attack (TIA), and cerebral infarction without residual deficits; Z79.82 Long term (current) use of aspirin; Z91.040 Latex allergy status
CPT/HCPCS: 33285; C1764; J0690; J1100; J1885; J2250; J2405; J3010

== ENCOUNTER 2019-03-24 11:38 | Emergency (ER) | payer BC, OTHER ==
[~2019-03-24] VITALS: Ht 165.1 cm; Wt 95.2 kg
[~2019-03-24 11:38] MED LIST changes: -LR 1,000 ML IV ONE
[2019-03-24 12:16] LABS: BASO % 0.2 % (0.0-1.0); EOS # 0.2 10^3/uL (0.0-0.50); EOS % 2.1 % (0.0-3.0); HEMATOCRIT 41.2 % (36.0-47.0); HEMOGLOBIN 13.6 g/dl (12.0-15.5); LYMPH # 2.4 10^3/uL (1.5-4.5); LYMPH % 23.2 % (24.0-44.0); MEAN CORPUSCULAR HEMOGLOBIN 30.4 pg (27.0-33.0); MEAN CORPUSCULAR VOLUME 92.2 fl (80.0-96.0); MONO # 0.6 10^3/uL (0.0-0.8); MONO % 5.6 % (0.0-5.0); NEUTROPHILS # 6.9 10^3/uL (1.8-7.7); NEUTROPHILS % 68.6 % (36.0-66.0); PLATELET COUNT, AUTOMATED 238 10^3/uL (150-450); RED BLOOD COUNT 4.47 10^6/uL (4.00-5.40); WHITE BLOOD COUNT 10.1 10^3/uL (4.0-10.0)
[2019-03-24 12:40] LABS: ALBUMIN 3.6 GM/DL (3.2-5.2); ALT/SGPT 25 U/L (12-78); BILIRUBIN,DIRECT < 0.1 MG/DL (0.0-0.2); BILIRUBIN,TOTAL 0.2 MG/DL (0.2-1.0); BLOOD UREA NITROGEN 7 MG/DL (7-18); CARBON DIOXIDE LEVEL 27 MEQ/L (21-32); CHLORIDE LEVEL 110 MEQ/L (98-107); CREATININE FOR GFR 0.77 MG/DL (0.55-1.30); GLOMERULAR FILTRATION RATE > 60.0 (>58); GLUCOSE, FASTING 96 MG/DL (70-100); LIPASE 134 U/L (73-393); POTASSIUM SERUM 3.9 MEQ/L (3.5-5.1); SODIUM LEVEL 142 MEQ/L (136-145); TOTAL PROTEIN 7.2 GM/DL (6.4-8.2)
[2019-03-24] MEDS ORDERED: NS 1,000 ML IV ONE (16:30)
[2019-03-24] MEDS ORDERED: ONDANSETRON 4MG/2ML VIAL (J2405) IV ONE (16:30)
[2019-03-24] MEDS ORDERED: KETOROLAC 30 MG/ML VIAL (J1885) IV ONE (16:30)
[2019-03-24] MEDS: GASTROGRAFIN SOLUTION 30ML PO SCH ×2 (16:49→17:18)
[2019-03-24] MEDS ORDERED: ISOVUE-370 76% 100ML VIAL (Q9967) As Ordered ONE (18:05)
--- NOTE | 2019-03-24 18:59 | REPVR ---
EXAM: CT Abdomen and Pelvis With Contrast EXAM DATE/TIME: 03/24/2019 4:26 PM CLINICAL HISTORY: 43 years old, female; Abdominal pain; Other: Lower; Additional info: Abd pain, change in bowel habits, known umbilical hernia TECHNIQUE: Imaging protocol: Axial computed tomography images of the abdomen and pelvis with intravenous contrast. Coronal and sagittal reformatted images were created and reviewed. Radiation optimization: All CT scans at this facility use at least one of these dose optimization techniques: automated exposure control; mA and/or kV adjustment per patient size (includes targeted exams where dose is matched to clinical indication); or iterative reconstruction. Contrast material: ISOVUE 370;Contrast volume: 100 ml;Contrast route: IV; COMPARISON: CT ABD/PEL W/IV CONTRAST ONLY 11/10/2016 9:20 PM FINDINGS: Liver: Liver is decreased in density, consistent with fatty infiltration. Gallbladder and bile ducts: Gallbladder is surgically absent. Pancreas: Pancreas appears normal. No focal mass or peripancreatic inflammation. Spleen: Spleen appears homogeneous without focal mass. Adrenals: Adrenal glands are normal in appearance. Kidneys and ureters: Kidneys appear normal, with no stone, solid mass or hydronephrosis. Stomach and bowel: No evidence of small bowel obstruction. No evidence of acute diverticulitis. Appendix: Normal caliber appendix is identified, with no adjacent inflammation. Intraperitoneal space: No pneumoperitoneum. Vasculature: Main portal and splenic veins enhance normally. No aortic aneurysm. Lymph nodes: No enlarged lymph nodes. No abnormal pelvic sidewall lymph nodes. Bladder: Bladder appears normal. Reproductive: Uterus is surgically absent. Bones/joints: Bony structures show no acute fracture or destructive process. Soft tissues: Ovoid 5 mm nodule abutting the lateral lower left hemidiaphragm, axial 20 and coronal image 70. No change since 11/10/2016. Left paramedian periumbilical hernia is present containing only fat, measuring 3.5 cm. IMPRESSION: No acute or concerning focal abdominal or pelvic process. Electronically signed by: Carter Marquez On 03/24/2019 18:59:44 PM
[2019-03-24] MEDS ORDERED: MORPHINE 2 MG/ML 1ML SYRINGE (J2270) IV ONE (19:00)
[2019-03-24 20:08] VITALS: BP 103/66
== END 2019-03-24 20:09 | disposition home or self-care (01) ==
LOC: M ED 11:38
DX: K42.9 Umbilical hernia without obstruction or gangrene (principal); I48.91 Unspecified atrial fibrillation; I10 Essential (primary) hypertension; F17.200 Nicotine dependence, unspecified, uncomplicated; Z86.79 Personal history of other diseases of the circulatory system; Z95.810 Presence of automatic (implantable) cardiac defibrillator; Z98.890 Other specified postprocedural states; Z91.018 Allergy to other foods; Z88.1 Allergy status to other antibiotic agents; Z91.040 Latex allergy status
CPT/HCPCS: 74177; 80048; 80076; 81001; 83690; 85025; 96374; 96375; 99284; J1885; J2270; J2405; Q9963; Q9967

== ENCOUNTER → 2019-05-06 | Outpatient (CLI) | payer BC ==
[2019-05-06 09:05] LABS: HEMATOCRIT 41.7 % (36.0-47.0); HEMOGLOBIN 13.6 g/dl (12.0-15.5); MEAN CORPUSCULAR HEMOGLOBIN 29.5 pg (27.0-33.0); MEAN CORPUSCULAR HGB CONC 32.6 g/dl (32.0-36.5); MEAN CORPUSCULAR VOLUME 90.5 fl (80.0-96.0); PLATELET COUNT, AUTOMATED 210 10^3/uL (150-450); RED BLOOD COUNT 4.61 10^6/uL (4.00-5.40); WHITE BLOOD COUNT 10.5 10^3/uL (4.0-10.0)
[2019-05-06 09:18] LABS: INR 0.98; PROTHROMBIN TIME 12.7 SECONDS (11.8-14.0)
[2019-05-06 09:23] LABS: HEMOGLOBIN A1c 5.4 %
[2019-05-06 09:43] LABS: ALBUMIN 3.3 GM/DL (3.2-5.2); ALT/SGPT 27 U/L (12-78); BILIRUBIN,TOTAL 0.4 MG/DL (0.2-1.0); BLOOD UREA NITROGEN 6 MG/DL (7-18); CALCIUM LEVEL 8.7 MG/DL (8.5-10.1); CARBON DIOXIDE LEVEL 27 MEQ/L (21-32); CHLORIDE LEVEL 105 MEQ/L (98-107); CHOLESTEROL LEVEL 226 MG/DL (<200); CHOLESTEROL RISK RATIO 6.848 (<5); GLOMERULAR FILTRATION RATE > 60.0 (>58); GLUCOSE, FASTING 80 MG/DL (70-100); HDL CHOLESTEROL 33 MG/DL (>40); LDL CHOLESTEROL 146 MG/DL (<100); NON-HDL-C 193 MG/DL; POTASSIUM SERUM 4.2 MEQ/L (3.5-5.1); SODIUM LEVEL 140 MEQ/L (136-145); TOTAL PROTEIN 7.1 GM/DL (6.4-8.2); TRIGLYCERIDES LEVEL 235 MG/DL (<150)
--- NOTE | 2019-05-06 10:14 | REP ---
REASON: Hypertension and hypothyroidism. COMPARISON: 04/15/2018 FINDINGS: The superior mediastinal structures are midline. The cardiac silhouette is unremarkable in size, shape, and position. The diaphragmatic surfaces of the lungs are regular, and the costophrenic angles are clear. The pulmonary martinez are clear. The imaged osseous structures are intact. IMPRESSION: There is no acute cardiopulmonary disease. Since the prior exam an implanted device has been placed in the left anterior chest subcutaneous tissues. Electronically Signed by Ron Huntley DO 05/06/2019 02:36 P
--- NOTE | 2019-05-07 00:31 | ECGEPIP ---
[facility] Test Date: 2019-05-06 Pat Name: STEPHY PADGETT Department: Room: - Gender: Female Youth Counselor: JEAN : 1975 Requested By: Cecille Méndez Order Number: [id number] Reading MD: Aashish Coles Measurements Intervals [place] Rate: 77 P: 44 NE: 169 QRS: 41 QRSD: 89 T: 23 QT: 369 QTc: 418 Interpretive Statements SINUS RHYTHM NONSPECIFIC ST-T ABNORMALITY CONSISTENT WITH EARLY REPOLARIZATION COMPARED TO THE LAST 3 TRACINGS IN THE SYSTEM, NO SIGNIFICANT CHANGES Electronically Signed on 05-07-2019 0:31:03 EDT by Aashish Coles
== END ==
LOC: M LAB 08:21
PROVIDERS: ATTEND Family Medicine
DX: I10 Essential (primary) hypertension (principal)

== ENCOUNTER 2019-06-02 08:03 | Day surgery (SDC) | payer BC ==
[~2019-06-02] VITALS: Ht 165.1 cm; Wt 95.2 kg
[~2019-06-02 08:03] MED LIST changes: +MECL-86 PO; +ceFAZolin SOD 2 GM in IV 1 EA IV ONE
[2019-06-02] MEDS ORDERED: ROCURONIUM BROMIDE 50 MG/5 ML VIAL As Ordered ONE (08:24)
[2019-06-02] MEDS ORDERED: PROPOFOL 200 MG/20 ML VIAL As Ordered ONE (08:25)
[2019-06-02] MEDS ORDERED: fentaNYL 250 MCG/5 ML INJECTION (J3010) As Ordered ONE (08:25)
[2019-06-02] MEDS ORDERED: LIDOCAINE 2% INJ 100 MG/5 ML SDV (FOR ANES.) As Ordered ONE (08:25)
[2019-06-02] MEDS ORDERED: MIDAZOLAM INJ 2 MG/2 ML VIAL (J2250) As Ordered ONE (08:25)
[2019-06-02] MEDS ORDERED: BUPIVACAINE/EPIN 0.25% 30 ML VIAL As Ordered ONE (09:19)
[2019-06-02] MEDS ORDERED: ESMOLOL INJ 100MG/10ML VIAL As Ordered ONE (09:52)
[2019-06-02] MEDS ORDERED: SUGAMMADEX SODIUM 500 MG/5 ML VIAL (BRIDION) As Ordered ONE (09:54)
[2019-06-02] MEDS ORDERED: METOCLOPRAMIDE INJ 10MG/2ML VIAL (J2765) As Ordered ONE (09:55)
[2019-06-02] MEDS ORDERED: KETOROLAC 60 MG/2 ML VIAL (J1885) As Ordered ONE (09:55)
[2019-06-02] MEDS ORDERED: dexameTHASONE 4 MG/ML 1ML VIAL (J1100) As Ordered ONE (09:55)
[2019-06-02] MEDS ORDERED: ONDANSETRON 4MG/2ML VIAL (J2405) As Ordered ONE (09:55)
[2019-06-02] MEDS ORDERED: ACETAMINOPHEN 1000MG 100ML IV BTL (OFIRMEV) (J0131 PER 10MG) As Ordered ONE (09:55)
[2019-06-02] MEDS ORDERED: LR 1,000 ML IV ONE (10:00)
[2019-06-02] MEDS ORDERED: METOCLOPRAMIDE INJ 10MG/2ML VIAL (J2765) IV PRN (10:45)
[2019-06-02] MEDS ORDERED: fentaNYL 100 MCG/2 ML INJECTION (J3010) IV PRN (10:45)
[2019-06-02] MEDS ORDERED: NORCO, ANEXSIA 5/325MG TABLET (HYDROcodone/ACETAMINOPHEN) PO PRN (10:45)
[2019-06-02] MEDS ORDERED: LR 1,000 ML IV SCH (10:45)
[2019-06-02] MEDS ORDERED: KETOROLAC 30 MG/ML VIAL (J1885) IV PRN (10:45)
[2019-06-02] MEDS ORDERED: MEPERIDINE INJ 25 MG/ML VIAL (J2175) IV PRN (10:45)
[2019-06-02] MEDS ORDERED: ONDANSETRON 4MG/2ML VIAL (J2405) IV PRN (10:45)
[2019-06-02] MEDS: oxyCODONE 5MG TAB PO PRN ×2 (10:46→11:20)
--- NOTE | 2019-06-02 10:59 | RO ---
DATE OF PROCEDURE: 06/02/2019 PREOPERATIVE DIAGNOSIS: Incisional hernia. POSTOPERATIVE DIAGNOSIS: Incisional hernia. PROCEDURE: Laparoscopic incisional hernia repair. SURGEON: Dr. Shon Moore DRAFTSPERSON: Luther cain. ANESTHESIA: General. ESTIMATED BLOOD LOSS: 5. COMPLICATIONS: None. INDICATIONS FOR PROCEDURE: The patient is 43-year-old female status post laparoscopic cholecystectomy who presents with a lump superior to her umbilicus and found likely to be an incisional hernia. Recommendation was to proceed with laparoscopic repair. Risks and benefits of the procedure not limited to, but including bleeding, infection, hernia recurrence, hernia formation, damage to surrounding structure, need for further surgery were discussed in detail with the patient. Informed consent was obtained and the procedure was planned. DESCRIPTION OF PROCEDURE: The patient was brought back to operating room three after sufficient sedation. The abdomen was sterilely prepped and draped. Next, a time out was done to confirm proper patient and proper procedure. Following that, a 5 mm incision was made in the left upper quadrant, Veress needle inserted and the abdomen was inflated to 15 mmHg. Next, the Veress needle was removed. A 5 mm OptiVu port was used to gain access to the abdomen. Once the abdomen was entered, omentum was adhered up inside of a supraumbilical midline incisional hernia. Another 5 mm port was placed in the left lower quadrant. Using the Enseal, the omental adhesions to the hernia sac were dissected free. Following that, the hernia sac was dissected free circumferentially and removed. Once the hernia sac was removed, it was taken out the abdomen using a pair of Kellys. Parietex composite 9 cm round mesh was taken. #0 Vicryl sutures were placed in all four corners. This was then placed inside the abdomen. Transfascial sutures were brought out through the abdominal wall using Gray-Osorio needle. Once that was completed, they were tied in place. Secure Strap tacker was then used place two rows of tacks around the perimeter of the mesh. Once that was completed, the abdomen was desufflated. Skin incisions were closed with #4-0 Vicryl subcuticular sutures. The abdomen was cleaned and dried. Steri-Strips, 4x4 and tape were applied, thus ending the procedure.
[2019-06-02 12:35] VITALS: BP 110/58
== END 2019-06-02 12:50 | disposition home or self-care (01) ==
LOC: M SDC 08:03
PROVIDERS: ATTEND Surgery
DX: K43.2 Incisional hernia without obstruction or gangrene (principal); K21.9 Gastro-esophageal reflux disease without esophagitis; E78.5 Hyperlipidemia, unspecified; G43.909 Migraine, unspecified, not intractable, without status migrainosus; F17.210 Nicotine dependence, cigarettes, uncomplicated; M12.9 Arthropathy, unspecified; R00.2 Palpitations; Z88.1 Allergy status to other antibiotic agents; Z91.018 Allergy to other foods; Z91.040 Latex allergy status; Z79.899 Other long term (current) drug therapy; Z79.82 Long term (current) use of aspirin; Z86.73 Personal history of transient ischemic attack (TIA), and cerebral infarction without residual deficits; Z90.710 Acquired absence of both cervix and uterus
CPT/HCPCS: 49654; C1781; J0131; J0690; J1100; J1885; J2250; J2405; J2765; J3010

== ENCOUNTER 2019-08-31 11:38 | Emergency (ER) | payer BC ==
[~2019-08-31] VITALS: Ht 165.1 cm; Wt 97.8 kg
[~2019-08-31 11:38] MED LIST changes: -ceFAZolin SOD 2 GM in IV 1 EA IV ONE
[2019-08-31 12:07] LABS: BASO # 0.1 10^3/uL (0.0-0.2); BASO % 0.5 % (0.0-1.0); EOS # 0.2 10^3/uL (0.0-0.5); EOS % 1.5 % (0.0-3.0); HEMATOCRIT 45.1 % (36.0-47.0); HEMOGLOBIN 14.6 g/dl (12.0-15.5); LYMPH # 3.5 10^3/uL (1.5-5.0); LYMPH % 30.3 % (24.0-44.0); MEAN CORPUSCULAR HEMOGLOBIN 29.4 pg (27.0-33.0); MEAN CORPUSCULAR HGB CONC 32.4 g/dl (32.0-36.5); MEAN CORPUSCULAR VOLUME 90.7 fl (80.0-96.0); MONO # 0.6 10^3/uL (0.0-0.8); MONO % 5.1 % (0.0-5.0); NEUTROPHILS # 7.1 10^3/uL (1.5-8.5); PLATELET COUNT, AUTOMATED 284 10^3/uL (150-450); RED BLOOD COUNT 4.97 10^6/uL (4.00-5.40); WHITE BLOOD COUNT 11.4 10^3/uL (4.0-10.0)
[2019-08-31] MEDS ORDERED: ISOVUE-370 76% 100ML VIAL (Q9967) As Ordered ONE (12:33)
[2019-08-31 12:40] LABS: ALBUMIN 3.9 GM/DL (3.2-5.2); ALT/SGPT 34 U/L (12-78); BILIRUBIN,DIRECT < 0.1 MG/DL (0.0-0.2); BILIRUBIN,TOTAL 0.3 MG/DL (0.2-1.0); CK-MB VALUE MASS < 1.0 NG/ML (<3.6); CPK CREATINE PHOSPHOKINASE 71 U/L (26-192); FREE T4 0.99 NG/DL (0.76-1.46); LIPASE 96 U/L (73-393); MB/CK RELATIVE INDEX 1.41 (< OR =4); TOTAL PROTEIN 7.7 GM/DL (6.4-8.2); TROPONIN I < 0.02 NG/ML (< 0.10)
--- NOTE | 2019-08-31 13:28 | REP ---
AP PORTABLE CHEST: 08/31/2019. Comparison: Chest 05/06/2019. Clinical history: Chest pain. Findings. Lungs quite hypoinflated with crowded markings in the bases and some subsegmental atelectatic change above both diaphragms. No dense consolidation with air bronchograms or pleural effusion. The posterior lower lung zones are not well evaluated. Heart size not enlarged for this degree of inflation and portable technique. I see no yann edema. The aorta is normal for age. Airway is intact. Bones intact. No free air under the diaphragm. A loop recorder projects over the lower left chest as on previous chest x-ray Impression: 1. Hypoinflated chest with crowded markings in the bases and some subsegmental atelectasis above the diaphragms. No dense consolidation, effusion, cardiomegaly or edema but a limited hypoinflated portable exam. Electronically Signed by Bryson Saleh MD 08/31/2019 08:27 P
[2019-08-31] MEDS ORDERED: NS 1,000 ML IV ONE (13:30)
--- NOTE | 2019-08-31 14:20 | REP ---
CTA CHEST: 08/31/2019. Comparison: AP chest 08/31/2019, PA and lateral 05/06/2019. Clinical history: Chest pain. Evaluate for PE. Technique: Bolus 75 mL Isovue [address] pulmonary angiogram technique in both coronal and sagittal standard and MIP reformats reviewed. Findings: Lungs are somewhat hypoinflated. Hazy ground-glass densities posteriorly only in the mid to lower chest. No pleural effusion, pleural plaque, calcified plaque, lung mass, dense consolidation or pulmonary nodule. There is no pneumothorax or pneumomediastinum. Thoracic aorta shows no evidence of dissection or aneurysm. The main, right and left pulmonary arteries in the mediastinum are without filling defects. The lobar, segmental and subsegmental pulmonary arteries are also without filling defects. No pathologic sized prevascular, AP window, hilar, or other mediastinal adenopathy. Axillary, supraclavicular region unremarkable. Bone windows show the sternum, manubrium, clavicles, scapula and visualized humeral heads intact. The ribs are without fracture or focal lesion visible. Spine shows small marginal osteophytes without compression deformity. The upper abdomen shows the liver quite low density even allowing for the contrast enhancement. I suspect fatty infiltration. Left lobe is prominent. Adrenal glands intact. Clips from prior cholecystectomy are noted. Only the body and tail of pancreas are seen and they are unremarkable. No hiatal hernia. Impression: 1. Diffuse hazy atelectatic changes mid and lower lung zones with one 6 mm nodule lateral basal segment left lower lobe, unchanged from 11/10/2016 CT abdomen and lung windows indicating benign stable finding for that nodule. No mass or dense consolidation. No effusion or pneumothorax. 2. No CT evidence of pulmonary thromboembolism. No aortic aneurysm or dissection. No mediastinal mass, adenopathy or other acute intrathoracic finding. 3. Bony chest without acute finding. 4. Fatty infiltration liver. Electronically Signed by Bryson Saleh MD 08/31/2019 08:29 P
[2019-08-31 18:02] LABS: CK-MB VALUE MASS < 1.0 NG/ML (<3.6); CPK CREATINE PHOSPHOKINASE 51 U/L (26-192); MB/CK RELATIVE INDEX 1.96 (< OR =4); TROPONIN I < 0.02 NG/ML (< 0.10)
[2019-08-31 18:31] VITALS: BP 109/52
--- NOTE | 2019-08-31 19:28 | ECGEPIP ---
[facility] - ED Test Date: 2019-08-31 Pat Name: STEPHY PADGETT Department: Room: - Gender: Female Staff Accountant: : [id number] Requested By: Macy Dugan Order Number: [id number] Reading MD: Macy Dugan Measurements Intervals [place] Rate: 92 P: 58 DE: 139 QRS: 45 QRSD: 79 T: 31 QT: 350 QTc: 434 Interpretive Statements SINUS RHYTHM NONSPECIFIC ST T WAVE CHANGES CW 05/06/[address] T WAVE CHANGES Electronically Signed on 08-31-2019 19:28:04 EST by Macy Dugan
--- NOTE | 2019-08-31 19:37 | ECGEPIP ---
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
--- NOTE | 2019-09-02 08:01 | ED PDOC ---
Post-Departure Follow-Up dr frausto faxed formal report of cta chest for fu Macy Sears MD Sep 02, 2019 08:01
== END 2019-08-31 18:53 | disposition home or self-care (01) ==
LOC: M ED 11:38
DX: R07.9 Chest pain, unspecified (principal); R06.02 Shortness of breath; M79.662 Pain in left lower leg; Z86.73 Personal history of transient ischemic attack (TIA), and cerebral infarction without residual deficits; F17.200 Nicotine dependence, unspecified, uncomplicated; R91.1 Solitary pulmonary nodule; K76.0 Fatty (change of) liver, not elsewhere classified; Z79.899 Other long term (current) drug therapy; Z88.1 Allergy status to other antibiotic agents; Z91.040 Latex allergy status; Z91.018 Allergy to other foods
CPT/HCPCS: 71045; 71275; 80047; 80076; 82550; 82553; 83690; 84439; 84443; 85025; 93005; 93041; 94760; 99285; Q9967

== ENCOUNTER 2022-05-04 20:27 | Emergency (ER) | payer BC ==
[~2022-05-04] VITALS: Ht 165.1 cm; Wt 97.7 kg
[~2022-05-04 20:27] MED LIST changes: +CYCL-707 PO; -CYCL10TA PO; +LOSA50TA28 PO; -LOSA50TA88 PO
[2022-05-04 21:14] LABS: BASO % 0.3 % (0.0-1.0); EOS # 0.3 10^3/uL (0.0-0.5); EOS % 2.5 % (0.0-3.0); HEMATOCRIT 41.3 % (36.0-47.0); HEMOGLOBIN 13.5 g/dl (12.0-15.5); LYMPH # 3.5 10^3/uL (1.5-5.0); LYMPH % 28.5 % (24.0-44.0); MEAN CORPUSCULAR HEMOGLOBIN 30.1 pg (27.0-33.0); MEAN CORPUSCULAR HGB CONC 32.7 g/dl (32.0-36.5); MEAN CORPUSCULAR VOLUME 92.2 fl (80.0-96.0); MONO # 0.7 10^3/uL (0.0-0.8); MONO % 5.7 % (2.0-8.0); NEUTROPHILS # 7.8 10^3/uL (1.5-8.5); NEUTROPHILS % 62.4 % (36.0-66.0); PLATELET COUNT, AUTOMATED 293 10^3/uL (150-450); RED BLOOD COUNT 4.48 10^6/uL (4.00-5.40); WHITE BLOOD COUNT 12.4 10^3/uL (4.0-10.0)
[2022-05-04 21:43] LABS: ALBUMIN 3.9 GM/DL (3.2-5.2); ALT/SGPT 30 U/L (12-78); AMYLASE 27 U/L (25-115); BILIRUBIN,DIRECT < 0.1 MG/DL (0.0-0.2); BILIRUBIN,TOTAL 0.3 MG/DL (0.2-1.0); BLOOD UREA NITROGEN 4 MG/DL (7-18); C REACTIVE PROTEIN QUANTITATIV 1.72 MG/DL (0.00-0.30); CALCIUM LEVEL 9.5 MG/DL (8.5-10.1); CARBON DIOXIDE LEVEL 28 MEQ/L (21-32); CHLORIDE LEVEL 103 MEQ/L (98-107); CREATININE FOR GFR 0.82 MG/DL (0.55-1.30); GLOMERULAR FILTRATION RATE > 60.0 (>58); GLUCOSE, FASTING 79 MG/DL (70-100); POTASSIUM SERUM 4.3 MEQ/L (3.5-5.1); SODIUM LEVEL 135 MEQ/L (136-145); TOTAL PROTEIN 7.7 GM/DL (6.4-8.2)
[2022-05-05 02:34] VITALS: BP 128/68
== END 2022-05-05 02:42 | disposition home or self-care (01) ==
LOC: M ED 20:27
DX: T81.30XA Disruption of wound, unspecified, initial encounter (principal); Z79.82 Long term (current) use of aspirin; Z79.899 Other long term (current) drug therapy; Z88.1 Allergy status to other antibiotic agents; Z91.040 Latex allergy status; Z91.018 Allergy to other foods